=== PATIENT | female | born 1965 | race Caucasian/White ===

== ENCOUNTER 2017-09-05 19:01 | Emergency (ER) | payer BC ==
[~2017-09-05] VITALS: Ht 170.2 cm; Wt 104.1 kg
[2017-09-05 20:03] LABS: HEMATOCRIT 43.7 % (36.0-46.0); HEMOGLOBIN 14.8 G/DL (11.9-15.5); MCH 29.6 PG (29.0-34.0); MCHC 33.9 G/DL (30.0-36.0); MCV 87.4 FL (83-99); PLATELET COUNT 467 K/uL (156-360); RBC DIS.WIDTH-CV 13.2 % (11.8-14.6); RBC DIS.WIDTH-SD 42.6 % (39-53); WHITE BLOOD COUNT 13.6 K/uL (4.1-10.2)
[2017-09-05 20:24] LABS: CHLORIDE 106 mEq/L (99-109); POTASSIUM 4.2 mEq/L (3.7-5.4); SODIUM 139 mEq/L (136-147)
[2017-09-05 20:26] LABS: GLUCOSE 89 mg/dL (70-99)
[2017-09-05 20:30] LABS: CREATININE 0.8 mg/dL (0.6-1.3); GFR ESTIMATE (CALCULATED) > 59 mL/min/
[2017-09-05 20:31] LABS: UREA NITROGEN (BUN) 15 mg/dL (9-23)
[2017-09-05 20:56] LABS: ALBUMIN 4.2 g/dL (3.2-4.8)
[2017-09-05 20:58] LABS: TOTAL PROTEIN 7.4 g/dL (6.4-8.3)
[2017-09-05 21:00] LABS: TOTAL BILIRUBIN 0.3 mg/dL (0.0-1.0)
[2017-09-05 21:01] LABS: ALKALINE PHOSPHATASE 138 IU/L (3-129)
[2017-09-05 21:03] LABS: APPEARANCE CLEAR ((CLEAR)); BILIRUBIN NEGATIVE; BLOOD NEGATIVE; COLOR YELLOW ((YELLOW)); GLUCOSE (STRIP) NEGATIVE; KETONES 5; LEUKOCYTES NEGATIVE; NITRITE NEGATIVE; PROTEIN (STRIP) NEGATIVE; SPECIFIC GRAVITY 1.024 (1.000-1.030); UCUL ADDED? NO; UROBILINOGEN 0.2 MG/DL (0.2-1.0)
[2017-09-05 21:04] LABS: ALT (GPT) 19 IU/L (3-49); AST (GOT) 16 IU/L (2-34); DIRECT BILIRUBIN 0.1 mg/dL (0.0-0.3)
[2017-09-05 21:05] LABS: LIPASE 20 U/L (1.0-51.0)
[2017-09-05 21:08] LABS: TROP-I INTERPRETATION NEGATIVE; TROPONIN-I < 0.01 ng/mL (0.0-0.30)
[2017-09-05 21:49] VITALS: BP 133/79
== END 2017-09-05 21:50 | disposition home or self-care (01) ==
LOC: EXP 19:01 → EME 19:01 → EXP 21:50
PROVIDERS: Physician Assistant
DX: R10.9 Unspecified abdominal pain (principal); R03.0 Elevated blood-pressure reading, without diagnosis of hypertension; R11.0 Nausea; R55 Syncope and collapse; F41.9 Anxiety disorder, unspecified; K21.9 Gastro-esophageal reflux disease without esophagitis; Z87.442 Personal history of urinary calculi; F17.200 Nicotine dependence, unspecified, uncomplicated
CPT/HCPCS: 70450; 71046; 80048; 80076; 81003; 83690; 84484; 85027; 93005; 99281; 99284